=== PATIENT | female | born 1980 | race Caucasian/White ===

== ENCOUNTER 2017-09-06 15:10 | Emergency (ER) | payer OTHER ==
[~2017-09-06] VITALS: Ht 172.7 cm; Wt 153.1 kg
[2017-09-06 15:13] VITALS: TEMP 36.9; Ht 172.7 cm; Wt 153.1 kg
[2017-09-06] MEDS ORDERED: [UNRECOGNIZED DRUG - OTHER] PO (15:55)
[2017-09-06] MEDS ORDERED: ACET-1256 PO (15:56)
[2017-09-06] MEDS ORDERED: IBUP-103 PO (15:56)
[2017-09-06 16:01] LABS: BASO % 0.2 %; BASO ABS # 0.02 K/uL (0-0.2); COMPLETE YES; EOS % 1.2 %; HEMATOCRIT 33.6 % (37-47); IG% 0.2 %; LYMPH % 20.8 %; LYMPH ABS # 2.12 K/uL (1.2-3.4); MEAN CELL VOLUME 80.8 fL (80-100); MEAN CORPUSCULAR HEMOGLOBIN 27.6 pg (25-34); MEAN CORPUSCULAR HGB CONC 34.2 g/dl (32-36); MONO % 4.3 %; NEUT % 73.3 %; PLATELET COUNT 225 K/uL (130-400); RED BLOOD COUNT 4.16 M/uL (4.2-5.4); WHITE BLOOD COUNT 10.18 K/uL (4.8-10.8)
[2017-09-06 16:11] LABS: PARTIAL THROMBOPLASTIN RATIO 1.1; PROTHROMBIN TIME (PATIENT) 10.4 SECONDS (9.0-12.0)
[2017-09-06 16:15] LABS: ALT/SGPT 19 U/L (12-78); BLOOD UREA NITROGEN 10 mg/dl (7-18); BUN/CREATININE RATIO 12.2 (10-20); CARBON DIOXIDE 26 mmol/L (21-32); CHLORIDE 106 mmol/L (98-107); CREATININE 0.85 mg/dl (0.60-1.20); GLUCOSE 109 mg/dl (70-99); POTASSIUM 3.9 mmol/L (3.5-5.1); SODIUM 138 mmol/L (136-145)
[2017-09-06 16:18] LABS: ALKALINE PHOSPHATASE 52 U/L (45-117); AST/SGOT 9 U/L (15-37)
--- NOTE | 2017-09-06 16:46 | DIAGNOSTIC IMAGING REPORT ---
PELVIC ULTRASOUND CLINICAL HISTORY: Menorrhagia. COMPARISON STUDY: None. TECHNIQUE: Transabdominal and transvaginal sonography of the pelvis was performed. FINDINGS: The uterus measures 11.9 x 5.4 x 7.2 cm. Endometrium measures 1.1 cm in thickness. The right ovary measures 4.9 x 4 x 4 cm and contains a 4 cm cyst. The left ovary measures 3.3 x 2.2 x 1.9 cm. There was color flow within each ovary. There was no free fluid. IMPRESSION: 1. Endometrial thickness of 1.1 cm which could be correlated with phase of menstrual cycle but is likely within normal limits. 2. 4 cm right ovarian cyst. Electronically signed by: Trevor Walker M.D. 09/06/2017 4:44 PM Dictated Date/Time: 09/06/2017 4:43 PM
--- NOTE | 2017-09-06 17:34 | EMERGENCY ROOM VISIT NOTE ---
History First contact with patient: 15:15 Chief Complaint: ED VAG BLEEDING Stated Complaint: MENSTRUAL BLEEDING EXTREMELY HEAVY W/CLOTS History of Present Illness The patient is a 36 year old female who presents to the Emergency Room with complaints of heavy vaginal bleeding. The patient states that last night she started passing large clots vaginally. She states that her period has been irregular. She was diagnosed with PCOS in 2013 when she lived in [place]. She had to have an emergency D&C. She states she was having the similar symptoms at that time. The patient states she did not have a menses in May and June. Then on August 04 she started bleeding and blood for 9 days and the flow was slight to moderate. She then did not have any bleeding for a few days and then started again on August 16 and blood heavy for 9 days. She said at that point she called her old [facility] in [place] and she prescribed Provera 10 mg twice a day. The patient states that she started the Provera on August 21 and took it twice a day for 2-3 days then once a day for 4 days. She states the bleeding then stopped but then started again last night. She took one Provera today. The patient recently moved to the area and has not yet gotten established with a family physician or [facility]. Patient admits to some cramping with her menses but it is not debilitating. The patient denies any vaginal discharge. The patient denies any nausea or vomiting. The patient denies any urinary symptoms or change in bowel habits. Review of Systems 10 system review was performed and was negative unless stated otherwise history of present illness. Past Medical/Surgical History PCOS, D&C Social History Smoking Status: Never Smoker Alcohol Use: occasionally Drug Use: none Marital Status: in relationship Housing Status: lives with significant other Current/Historical Medications Scheduled Acetaminophen (Tylenol), 1,000 MG PO Q6 [Medroxypr Ac], 1 TAB PO UD Scheduled PRN Ibuprofen Tab (Advil), 400 MG PO Q6 PRN for Pain Physical Exam Vital Signs Date Time Temp Pulse Resp B/P (MAP) Pulse Ox O2 Delivery O2 Flow Rate FiO2 09/06/17 17:15 85 18 132/68 100 Room Air 09/06/17 15:13 36.9 79 18 178/99 99 Room Air Physical Exam GENERAL: Obese 36-year-old female appears in no acute distress. MENTAL Status: Alert and oriented 3. EYES: Conjunctiva are pink NECK: Supple, no lymphadenopathy noted. No carotid bruits noted. LUNGS: Clear auscultation without wheezes rales or rhonchi. CARDIAC: Regular rate and rhythm without murmur. Pulses is full and equal throughout. BACK: No CVA tenderness noted. ABDOMEN: Positive bowel sounds all 4 quadrants. Soft, mild tenderness to palpation over the lower abdomen otherwise nontender to palpation. Difficult to evaluate for organomegaly or masses secondary to patient's size. EXTREMITIES: No cyanosis or edema noted. Medical Decision & Procedures ER Provider Diagnostic Interpretation: PELVIC ULTRASOUND CLINICAL HISTORY: Menorrhagia. COMPARISON STUDY: None. TECHNIQUE: Transabdominal and transvaginal sonography of the pelvis was performed. FINDINGS: The uterus measures 11.9 x 5.4 x 7.2 cm. Endometrium measures 1.1 cm in thickness. The right ovary measures 4.9 x 4 x 4 cm and contains a 4 cm cyst. The left ovary measures 3.3 x 2.2 x 1.9 cm. There was color flow within each ovary. There was no free fluid. IMPRESSION: 1. Endometrial thickness of 1.1 cm which could be correlated with phase of menstrual cycle but is likely within normal limits. 2. 4 cm right ovarian cyst. Electronically signed by: Trevor Walker M.D. 09/06/2017 4:44 PM Laboratory Results 09/06/17 15:48 Red Blood Count 4.16, Mean Corpuscular Volume 80.8, Mean Corpuscular Hemoglobin 27.6, Mean Corpuscular Hemoglobin Concent 34.2, Mean Platelet Volume 10.0, Neutrophils (%) (Auto) 73.3, Lymphocytes (%) (Auto) 20.8, Monocytes (%) (Auto) 4.3, Eosinophils (%) (Auto) 1.2, Basophils (%) (Auto) 0.2, Neutrophils # (Auto) 7.46, Lymphocytes # (Auto) 2.12, Monocytes # (Auto) 0.44, Eosinophils # (Auto) 0.12, Basophils # (Auto) 0.02 09/06/17 15:48 Test 09/06/17 15:48 White Blood Count 10.18 K/uL (4.8-10.8) Red Blood Count 4.16 M/uL (4.2-5.4) Hemoglobin 11.5 g/dL (12.0-16.0) Hematocrit 33.6 % (37-47) Mean Corpuscular Volume 80.8 fL (80-100) Mean Corpuscular Hemoglobin 27.6 pg (25-34) Mean Corpuscular Hemoglobin Concent 34.2 g/dl (32-36) Platelet Count 225 K/uL (130-400) Mean Platelet Volume 10.0 fL (7.4-10.4) Neutrophils (%) (Auto) 73.3 % Lymphocytes (%) (Auto) 20.8 % Monocytes (%) (Auto) 4.3 % Eosinophils (%) (Auto) 1.2 % Basophils (%) (Auto) 0.2 % Neutrophils # (Auto) 7.46 K/uL (1.4-6.5) Lymphocytes # (Auto) 2.12 K/uL (1.2-3.4) Monocytes # (Auto) 0.44 K/uL (0.11-0.59) Eosinophils # (Auto) 0.12 K/uL (0-0.5) Basophils # (Auto) 0.02 K/uL (0-0.2) RDW Standard Deviation 40.6 fL (36.4-46.3) RDW Coefficient of Variation 13.9 % (11.5-14.5) Immature Granulocyte % (Auto) 0.2 % Immature Granulocyte # (Auto) 0.02 K/uL (0.00-0.02) Prothrombin Time 10.4 SECONDS (9.0-12.0) Prothromb Time International Ratio 1.0 (0.9-1.1) Activated Partial Thromboplast Time 28.9 SECONDS (21.0-31.0) Partial Thromboplastin Ratio 1.1 Anion Gap 6.0 mmol/L (3-11) Est Creatinine Clear Calc Drug Dose 146.6 ml/min Estimated GFR () 103.6 Estimated GFR (Non- 89.4 BUN/Creatinine Ratio 12.2 (10-20) Calcium Level 9.0 mg/dl (8.5-10.1) Total Bilirubin 0.2 mg/dl (0.2-1) Direct Bilirubin < 0.1 mg/dl (0-0.2) Aspartate Amino Transf (AST/SGOT) 9 U/L (15-37) Alanine Aminotransferase (ALT/SGPT) 19 U/L (12-78) Alkaline Phosphatase 52 U/L (45-117) Total Protein 7.4 gm/dl (6.4-8.2) Albumin 2.9 gm/dl (3.4-5.0) ED Course The patient was evaluated. CBC and differential, renal profile, LFTs and coags were ordered. Pelvic ultrasound was ordered and interpreted by the radiologist and myself as above with a 4 cm right ovarian cyst otherwise unremarkable.. [facility] an [facility] for next week if possible. The rehabilitation caseworker stated that with the patient's insurance she will need to be set up with a family practice doctor to give her referral to [facility]. The rehabilitation caseworker will call the patient in the morning with an appointment time with a new PCP. The patient's labs are reviewed. Patient' s white count was normal. Her hemoglobin was slightly low at 11.5 and hematocrit were slightly low at 33.6. Albumin was also slightly low at 2.9. The patient was informed of all findings. The patient was discharged home in stable condition. Medical Decision Differential diagnosis include endometriosis, fibroid, missed , PCOS, dysfunctional uterine bleeding [place] Drug Monitoring Program Search Results: patient reviewed within database Medication Reconcilliation Current Medication List: was personally reviewed by me Blood Pressure Screening Patient's blood pressure: Normal blood pressure Impression Primary Impression: Irregular menstrual bleeding Additional Impressions: Polycystic ovarian syndrome Anemia Departure Information Dispostion Home / Self-Care Condition GOOD Referrals No Doctor, Assigned (PCP) Forms HOME CARE DOCUMENTATION FORM, IMPORTANT VISIT INFORMATION, WORK / SCHOOL INSTRUCTIONS Patient Instructions Anemia, My [facility] Status4 Additional Instructions Continue Provera as prescribed by your prior safe and vault mechanic. Recommend eating a diet high in iron since you are slightly anemic. The rehabilitation caseworker will call you tomorrow with an appointment time with a family physician who will be able to get to referred to a safe and vault mechanic. If symptoms worsen in the interim, don't hesitate to return to ER. 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
[2017-09-06 17:43] VITALS: BP 132/68; PULSE 85; O2SAT 100
== END 2017-09-06 17:35 | disposition home or self-care (01) ==
LOC: C.EDB 15:13 → C.EDC 17:35
DX: E28.2 Polycystic ovarian syndrome (principal); N92.6 Irregular menstruation, unspecified; D64.9 Anemia, unspecified

== ENCOUNTER → 2017-09-28 | Outpatient (CLI) | payer OTHER ==
[~2017-09-28] MED LIST: ACET-1256 PO; IBUP-103 PO; [UNRECOGNIZED DRUG - OTHER] PO
== END | disposition home or self-care (01) ==
LOC: C.PATHSPEC 13:14
PROVIDERS: ATTEND Obstetrics & Gynecology
DX: N93.8 Other specified abnormal uterine and vaginal bleeding (principal)

== ENCOUNTER → 2017-09-28 | Outpatient (CLI) | payer OTHER | END | disposition home or self-care (01) | LOC: C.LAB1850 10:31 | PROVIDERS: ATTEND Obstetrics & Gynecology | DX: N93.8 Other specified abnormal uterine and vaginal bleeding (principal) ==